=== PATIENT | female | born 1945 | race Caucasian/White ===

== ENCOUNTER 2017-07-22 14:56 | Observation (INO) | payer MEDICARE, BC ==
[2017-07-22] MEDS ORDERED: Ondansetron 4 MG/2 ML SDV IVPUSH ONE (15:13)
[2017-07-22] MEDS ORDERED: Sodium Chloride 0.9% 1,000 ML IV SCH (15:15)
[2017-07-22] MEDS ORDERED: Pantoprazole 40 MG Vial IVPUSH ONE (15:44)
--- NOTE | 2017-07-22 15:45 | EDM.PDOC ---
ED HPI GENERAL MEDICAL PROBLEM - General Chief Complaint: Gastrointestinal Problem Stated Complaint: MEDICAL/DR. HALL CALLED Time Seen by Provider: 07/22/17 15:45 Source of Information: Reports: Patient History Limitations: Reports: No Limitations - History of Present Illness INITIAL COMMENTS - FREE TEXT/NARRATIVE: pt started with intractable vomiting. She did not have pain in the abdoman. She was vomiting coffee ground material. She has been on omeprazole 20mg 1 tab daily. Onset: Today, Sudden Duration: Hour(s): Location: Reports: Abdomen Associated Symptoms: Reports: Nausea/Vomiting, Other ( sudden onset. 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: Hematologic History: Reports: Blood Transfusion(s) - Past Surgical History GI Surgical History: Reports: Appendectomy Female Surgical History: Reports: Hysterectomy Social & Family History - Tobacco Use Smoking Status *Q: Never Smoker - Caffeine Use Caffeine Use: Reports: Coffee - Alcohol Use Days Per Week of Alcohol Use: 7 Number of Drinks Per Day: 2 Total Drinks Per Week: 14 - Recreational Drug Use Recreational Drug Use: No ED ROS GENERAL - Review of Systems Review Of Systems: See Below Constitutional: Reports: No Symptoms HEENT: Reports: No Symptoms Respiratory: Reports: No Symptoms Cardiovascular: Reports: No Symptoms Endocrine: Reports: No Symptoms GI/Abdominal: Reports: Hematemesis, Nausea, Vomiting, Other ( Pt is feeling very shakey. ) : Reports: No Symptoms Musculoskeletal: Reports: No Symptoms Skin: Reports: No Symptoms ED EXAM, GI/ABD - Physical Exam Exam: See Below Text/Narrative:: Pt arrived with nausea and vomiting. She is vomiting coffee ground material. She does not have abdomanal pain. Exam Limited By: No Limitations General Appearance: Alert, Anxious, Moderate Distress Eyes: Bilateral: Normal Appearance, EOMI Ears: Normal TMs Nose: Normal Inspection Throat/Mouth: Normal Inspection Head: Atraumatic Neck: Normal Inspection Respiratory/Chest: No Respiratory Distress Cardiovascular: Regular Rate, Rhythm GI/Abdominal Exam: Soft, Non-Tender (Female) Exam: Deferred Rectal (Female) Exam: Deferred Back Exam: Normal Inspection Extremities: Normal Inspection Neurological: Alert, Oriented, Normal Cognition, Other (pt appears very anxious and she is having very restless legs. ) Course - Vital Signs Last Recorded V/S: Last Vital Signs Temp 35.4 C 07/22/17 16:02 Pulse 74 07/22/17 16:02 Resp 22 H 07/22/17 16:02 BP 147/77 H 07/22/17 16:02 Pulse Ox 100 07/22/17 16:02 - Orders/Labs/Meds Orders: Active Orders 24 hr Category Date Time Status OCCULT BLOOD, GASTRIC [OP] Stat Lab 07/22/17 15:43 Uncollected UA W/MICROSCOPIC [URIN] Urgent Lab 07/22/17 15:16 Uncollected Sodium Chloride 0.9% [Normal Saline] 1,000 ml Med 07/22/17 15:15 Active IV ASDIRECTED Medication Orders Sodium Chloride (Normal Saline) 1,000 mls @ 250 mls/hr IV ASDIRECTED NEERAJ Last Admin: 07/22/17 15:22 Dose: 250 mls/hr Labs: Laboratory Tests 07/22/17 07/22/17 Range/Units 15:25 15:25 WBC 10.6 (4.5-11.0) K/uL RBC 4.67 (3.30-5.50) M/uL Hgb 14.6 (12.0-15.0) g/dL Hct 41.3 (36.0-48.0) % MCV 88 (80-98) fL MCH 31 (27-31) pg MCHC 35 (32-36) % Plt Count 197 (150-400) K/uL Neut % (Auto) 78 H (36-66) % Lymph % (Auto) 15 L (24-44) % [place] % (Auto) 7 H (2-6) % Eos % (Auto) 1 L (2-4) % Baso % (Auto) 0 (0-1) % Sodium 139 L (140-148) mmol/L Potassium 3.3 L (3.6-5.2) mmol/L Chloride 101 (100-108) mmol/L Carbon Dioxide 23 (21-32) mmol/L Anion Gap 18.3 H (5.0-14.0) mmol/L BUN 18 (7-18) mg/dL Creatinine 0.8 (0.6-1.0) mg/dL Est Cr Clr Drug Dosing 50.27 mL/min Estimated GFR (MDRD) > 60 (>60) Glucose 194 H (74-106) mg/dL Calcium 9.2 (8.5-10.1) mg/dL Total Bilirubin 0.5 (0.2-1.0) mg/dL AST 26 (15-37) U/L ALT 34 (12-78) U/L Alkaline Phosphatase 79 (46-116) U/L Total Protein 8.6 H (6.4-8.2) g/dL Albumin 4.3 (3.4-5.0) g/dL Globulin 4.3 H (2.3-3.5) g/dL Albumin/Globulin Ratio 1.0 L (1.2-2.2) Meds: Medications Generic Name Dose Route Start Last Admin Trade Name Freq PRN Reason Stop Dose Admin Sodium Chloride 1,000 mls @ 250 mls/hr 07/22/17 15:15 07/22/17 15:22 Normal Saline IV 250 mls/hr ASDIRECTED NEERAJ Administration Discontinued Medications Generic Name Dose Route Start Last Admin Trade Name Freq PRN Reason Stop Dose Admin Lorazepam 0.5 mg 07/22/17 16:01 07/22/17 16:11 Ativan IVPUSH 07/22/17 16:02 0.5 mg ONETIME ONE Administration Ondansetron HCl 4 mg 07/22/17 15:13 07/22/17 15:23 Zofran IVPUSH 07/22/17 15:14 4 mg ONETIME ONE Administration Pantoprazole Sodium 40 mg 07/22/17 15:44 07/22/17 15:52 Protonix Iv IVPUSH 07/22/17 15:45 40 mg ONETIME ONE Administration - Re-Assessments/Exams Free Text/Narrative Re-Assessment/Exam: 07/22/17 16:21 hg is stable and vital signs are normal. . She has coffee ground material. Departure - Departure Time of Disposition: 16:23 Disposition: Admitted As Inpatient 66 Condition: Fair Clinical Impression: Dehydration, Coffee ground vomiting, Gastric reflux - Discharge Information Referrals: Last Cuellar MD [Primary Care Provider] - Forms: ED Department Discharge Care Plan Goals: admit to Dr sebastian. - My Orders Last 24 Hours: My Active Orders 07/22/17 15:15 Sodium Chloride 0.9% [Normal Saline] 1,000 ml IV ASDIRECTED 07/22/17 15:16 UA W/MICROSCOPIC [URIN] Urgent 07/22/17 15:43 OCCULT BLOOD, GASTRIC [OP] Stat - Assessment/Plan Last 24 Hours: My Active Orders 07/22/17 15:15 Sodium Chloride 0.9% [Normal Saline] 1,000 ml IV ASDIRECTED 07/22/17 15:16 UA W/MICROSCOPIC [URIN] Urgent 07/22/17 15:43 OCCULT BLOOD, GASTRIC [OP] Stat
[2017-07-22] MEDS ORDERED: LORazepam 2 MG/ML MDV IVPUSH ONE (16:01)
--- NOTE | 2017-07-22 17:09 | PCM.HP ---
H&P History of Present Illness - General Date of Service: 07/22/17 Admit Problem/Dx: Admission Diagnosis/Problem Admission Diagnosis/Problem Vertigo Source of Information: Patient, Family, Provider, RN Notes Reviewed History Limitations: Reports: No Limitations - History of Present Illness Initial Comments - Free Text/Narative: Ms. Núñez is a 72-year-old woman who is admitted to observation status through the emergency department with positional vertigo, resulting in intractable nausea vomiting and dehydration. She felt well until about noon today when she noted sudden onset of a dizzy spinning sensation. She recognized this as vertigo as she has experienced it in the past. Shortly after onset of the vertigo developed intractable nausea and vomiting which persisted over the next few hours until she presented to the emergency department. While in the emergency department she has received antiemetic therapy including Zofran and lorazepam. With these interventions the nausea and vomiting has improved. Vertiginous symptoms have improved but recur abruptly with any change in head position. She denies any other neurologic symptoms and is otherwise hemodynamically stable. 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 Denies: Ear Pain, Eye Pain, Headaches Pulmonary: Reports: No Symptoms Cardiovascular: Reports: No Symptoms Gastrointestinal: Reports: Nausea, Vomiting. Denies: Abdominal Pain, Diarrhea Genitourinary: Reports: No Symptoms Musculoskeletal: Reports: No Symptoms Skin: Reports: No Symptoms Psychiatric: Reports: No Symptoms Neurological: Reports: No Symptoms Hematologic/Lymphatic: Reports: No Symptoms Immunologic: Reports: No Symptoms Exam - Exam Exam: See Below - Vital Signs Vital Signs: Last Vital Signs Temp 95.8 F 07/22/17 16:02 Pulse 74 07/22/17 16:02 Resp 22 H 07/22/17 16:02 BP 147/77 H 07/22/17 16:02 Pulse Ox 100 07/22/17 16:02 Weight: 177 lb - Exam Quality Assessment: DVT Prophylaxis General: Cooperative, Moderate Distress, Sedated HEENT: Conjunctiva Clear, Mucosa Moist & Boring, Normal Nasal Septum, Posterior Pharynx Clear, Pupils Equal Neck: Supple, Trachea Midline, +2 Carotid Pulse wo Bruit Lungs: Clear to Auscultation, Normal Respiratory Effort Cardiovascular: Regular Rate, Regular Rhythm, Normal S1, Normal S2 GI/Abdominal Exam: Normal Bowel Sounds, Soft, Non-Tender, No Distention Back Exam: Normal Inspection, Full Range of Motion Extremities: Normal Inspection, Non-Tender, No Pedal Edema Skin: Warm, Dry, Intact Neurological: Cranial Nerves Intact, Strength Equal Bilateral, Normal Speech, Normal Tone, Sensation Intact. No: Focal Deficit Neuro Extensive - Mental Status: Alert, Oriented x3, Normal Mood/Affect, Normal Cognition, Memory Intact - Patient Data Lab Results Last 24 hrs: Laboratory Results - last 24 hr 07/22/17 07/22/17 Range/Units 15:25 15:25 WBC 10.6 (4.5-11.0) K/uL RBC 4.67 (3.30-5.50) M/uL Hgb 14.6 (12.0-15.0) g/dL Hct 41.3 (36.0-48.0) % MCV 88 (80-98) fL MCH 31 (27-31) pg MCHC 35 (32-36) % Plt Count 197 (150-400) K/uL Neut % (Auto) 78 H (36-66) % Lymph % (Auto) 15 L (24-44) % [place] % (Auto) 7 H (2-6) % Eos % (Auto) 1 L (2-4) % Baso % (Auto) 0 (0-1) % Sodium 139 L (140-148) mmol/L Potassium 3.3 L (3.6-5.2) mmol/L Chloride 101 (100-108) mmol/L Carbon Dioxide 23 (21-32) mmol/L Anion Gap 18.3 H (5.0-14.0) mmol/L BUN 18 (7-18) mg/dL Creatinine 0.8 (0.6-1.0) mg/dL Est Cr Clr Drug Dosing 50.27 mL/min Estimated GFR (MDRD) > 60 (>60) Glucose 194 H (74-106) mg/dL Calcium 9.2 (8.5-10.1) mg/dL Total Bilirubin 0.5 (0.2-1.0) mg/dL AST 26 (15-37) U/L ALT 34 (12-78) U/L Alkaline Phosphatase 79 (46-116) U/L Total Protein 8.6 H (6.4-8.2) g/dL Albumin 4.3 (3.4-5.0) g/dL Globulin 4.3 H (2.3-3.5) g/dL Albumin/Globulin Ratio 1.0 L (1.2-2.2) Result Diagrams: 07/22/17 15:25 07/22/17 15:25 *Q Meaningful Use (ADM) - VTE *Q VTE Criteria *Q: - VTE Risk Assess *Q Each Risk Factor Represents 1 Point: None Total Score 1 Point Risk Factors: 0 Each Risk Factor Represents 2 Points: Age 60 - 74 Years Total Score 2 Point Risk Factors: 2 Each Risk Factor Represents 3 Points: None Total Score 3 Point Risk Factors: 0 Each Risk Factor Represents 5 Points: None Total Score 5 Point Risk Factors: 0 Venous Thromboembolism Risk Factor Score *Q: 2 - Stroke *Q Stroke Criteria *Q: - AMI *Q AMI Criteria *Q: Problem List Initiated/Reviewed/Updated: Yes Orders Last 24hrs: Active Orders 24 hr Category Date Time Status Patient Status Manage Transfer [TRANSFER] Routine ADT 07/22/17 16:54 Ordered OCCULT BLOOD, GASTRIC [OP] Stat Lab 07/22/17 15:43 Uncollected UA W/MICROSCOPIC [URIN] Urgent Lab 07/22/17 15:16 Uncollected Sodium Chloride 0.9% [Normal Saline] 1,000 ml Med 07/22/17 15:15 Active IV ASDIRECTED Resuscitation Status Routine Resus Stat 07/22/17 16:56 Ordered Medication Orders Sodium Chloride (Normal Saline) 1,000 mls @ 250 mls/hr IV ASDIRECTED [facility] Last Admin: 07/22/17 15:22 Dose: 250 mls/hr Assessment/Plan Comment:: ASSESSMENT AND PLAN POSITIONAL VERTIGO-associated with intractable nausea vomiting and resulting dehydration. Abrupt onset of symptoms today, nausea and vomiting did not start until after she developed the vertigo. There was some question of possible blood in the emesis, patient reports that she had prune jam with her toast. -Clear liquid diet -IV lorazepam as needed for nausea -When necessary meclizine -Physical therapy consult in a.m. -Protonix 40 mg IV twice daily MAINTENANCE ISSUES -DVT prophylaxis; Lovenox 40 mg subcutaneous daily -GI prophylaxis; Protonix as above -Hurt catheter; not indicated -Nutrition; clear liquid diet -Nicotinic dependence; not required CODE STATUS-full code ADMISSION STATUS-this patient will be admitted to observation status, expect no more than a one night hospital stay for evaluation and management of problems as outlined above. DISPOSITION-anticipate discharge to home after the hospital stay. PRIMARY CARE PROVIDER-Erin Hinojosa
[2017-07-22] MEDS ORDERED: LORazepam 2 MG/ML MDV IV PRN (17:38)
[2017-07-22] MEDS ORDERED: Magnesium Hydroxide 400 MG/5 ML Susp 30 ML Cup PO PRN (17:38)
[2017-07-22] MEDS ORDERED: Acetaminophen 325 MG Tab PO PRN (17:38)
[2017-07-22] MEDS ORDERED: Meclizine 25 MG Tab PO PRN (17:38)
[2017-07-22] MEDS ORDERED: Docusate Sodium 100 MG Cap PO PRN (17:38)
[2017-07-22] MEDS ORDERED: Sodium Chloride 0.9% 10 ML Syringe FLUSH PRN (17:38)
[2017-07-22] MEDS ORDERED: Polyethylene Glycol 3350 Powder 17 GM Packet PO PRN (17:38)
[2017-07-22] MEDS: Sodium Chloride 0.9% 1,000 ML IV SCH (18:29)
[2017-07-22] MEDS: Pantoprazole 40 MG Vial IV SCH (18:32)
[2017-07-22] MEDS: Enoxaparin 40 MG/0.4 ML Syringe SUBCUT SCH (18:32)
[2017-07-22] MEDS ORDERED: atorvaSTATin 20 MG Tab PO SCH (21:00)
[2017-07-23] MEDS: Sodium Chloride 0.9% 1,000 ML IV SCH ×2 (02:36→10:41)
[2017-07-23] MEDS: Pantoprazole 40 MG Vial IV SCH (06:39)
[2017-07-23] MEDS: Enoxaparin 40 MG/0.4 ML Syringe SUBCUT SCH (08:37)
[2017-07-23] MEDS ORDERED: Potassium Chloride 20 MEQ Tab.ER PO ONE (09:00)
[2017-07-23 11:56] VITALS: BP 117/72
--- NOTE | 2017-07-23 12:25 | PCM.DCSUM1 ---
Discharge Summary - Hospital Course Brief History: Ms. Núñez is a 72-year-old woman who was admitted through the emergency department observation status with intractable nausea vomiting secondary to positional vertigo. - Discharge Data Discharge Date: 07/23/17 Discharge Disposition: Home, Self-Care 01 Condition: Good - Discharge Diagnosis/Problem(s) (1) Nausea and vomiting SNOMED Code(s): 22874505 ICD Code: R11.2 - NAUSEA WITH VOMITING, UNSPECIFIED Status: Acute Current Visit: Yes (2) Positional vertigo SNOMED Code(s): 424797057 ICD Code: H81.10 - BENIGN PAROXYSMAL VERTIGO, UNSPECIFIED EAR Status: Acute Current Visit: Yes (3) Dehydration SNOMED Code(s): 36959531 ICD Code: E86.0 - DEHYDRATION Status: Acute Current Visit: Yes - Patient Summary/Data Consults: Consultations 07/22/17 17:38 PT Evaluation and Treatment [CONS] Routine Please Evaluate and Treat. PT Reason for Consult: Vestibular This query below is only for informational purposes and is not editable. Hospital Course: This patient is a 72-year-old woman who developed abrupt onset of vertigo followed shortly thereafter by intractable nausea and vomiting. She initially went into the clinic and then was referred to the emergency department for further evaluation and management. She was felt to be dehydrated and despite interventions the emergency department had ongoing symptoms of vertigo associated with nausea and vomiting. She was admitted to the hospital for management of her intractable symptoms on observation status. She received IV fluids for hydration as well as antiemetic therapy with IV lorazepam and meclizine as needed for the vertigo. By the following morning her symptoms had entirely resolved and she tolerated a regular diet prior to discharge. She denied any epigastric abdominal pain and has had no further nausea or vomiting. Potassium was low and was replaced intravenously as well as orally. She will be discharged home on a regular diet and is instructed to avoid driving for the next week and to make changes in position slowly.Prior to discharge she was seen by physical therapy for vestibular evaluation and was given written information concerning management of positional vertigo. Follow-up appointment will be scheduled with her primary care provider within one week. - Patient Instructions Diet: Usual Diet as Tolerated Activity: As Tolerated Other/Special Instructions: Please schedule follow-up appointment with primary care provider within one week. - Discharge Plan Home Medications: Home Meds Omeprazole 20 mg PO DAILY 01/26/16 [History] Ibuprofen 400 mg PO TID 07/22/17 [History] atorvaSTATin [Lipitor] 20 mg PO BEDTIME 07/22/17 [History] Referrals: Last Cuellar MD [Primary Care Provider] - - Patient Data Vitals - Most Recent: Last Vital Signs Temp 97.8 F 07/23/17 11:54 Pulse 77 07/23/17 11:54 Resp 16 07/23/17 11:54 BP 117/72 07/23/17 11:54 Pulse Ox 94 L 07/23/17 11:54 Weight - Most Recent: 174 lb 4.8 oz I&O - Last 24 hours: Intake & Output 07/22/17 07/23/17 07/23/17 22:59 06:59 14:59 Intake Total 200 1460 840 Output Total 1400 1050 Balance -1200 410 840 Lab Results - Last 24 hrs: Laboratory Results - last 24 hr 07/23/17 07/23/17 Range/Units 05:30 05:30 WBC 7.2 (4.5-11.0) K/uL RBC 4.16 (3.30-5.50) M/uL Hgb 13.0 (12.0-15.0) g/dL Hct 37.0 (36.0-48.0) % MCV 89 (80-98) fL MCH 31 (27-31) pg MCHC 35 (32-36) % Plt Count 191 (150-400) K/uL Neut % (Auto) 60 (36-66) % Lymph % (Auto) 29 (24-44) % [place] % (Auto) 9 H (2-6) % Eos % (Auto) 2 (2-4) % Baso % (Auto) 0 (0-1) % Sodium 142 (140-148) mmol/L Potassium 3.3 L (3.6-5.2) mmol/L Chloride 108 (100-108) mmol/L Carbon Dioxide 27 (21-32) mmol/L Anion Gap 10.3 (5.0-14.0) mmol/L BUN 9 (7-18) mg/dL Creatinine 0.7 (0.6-1.0) mg/dL Est Cr Clr Drug Dosing 58.77 mL/min Estimated GFR (MDRD) > 60 (>60) Glucose 95 (74-106) mg/dL Calcium 8.3 L (8.5-10.1) mg/dL GABRIEL Results - Last 24 hrs: Microbiology 07/22/17 17:11 Gastric Occult Blood - Final Gastric Fluid Med Orders - Current: Current Medications Acetaminophen (Tylenol) 650 mg PO Q4H PRN PRN Reason: Pain (Mild 1-3)/fever Atorvastatin Calcium (Lipitor) 20 mg PO BEDTIME [facility] Last Admin: 07/22/17 21:22 Dose: Not Given Docusate Sodium (Colace) 100 mg PO BID PRN PRN Reason: Constipation Enoxaparin Sodium (Lovenox) 40 mg SUBCUT DAILY [facility] Last Admin: 07/23/17 08:37 Dose: 40 mg Sodium Chloride (Normal Saline) 1,000 mls @ 125 mls/hr IV ASDIRECTED [facility] Last Admin: 07/23/17 10:41 Dose: 125 mls/hr Lorazepam (Ativan) 0.5 mg IV Q2H PRN PRN Reason: Nausea/Vomiting Magnesium Hydroxide (Milk Of Magnesia) 30 ml PO Q12H PRN PRN Reason: Constipation Meclizine HCl (Antivert) 25 mg PO Q6H PRN PRN Reason: Dizziness Pantoprazole Sodium (Protonix Iv) 40 mg IV Q12H [facility] Last Admin: 07/23/17 06:39 Dose: 40 mg Polyethylene Glycol (Miralax) 17 gm PO DAILY PRN PRN Reason: Constipation Sodium Chloride (Saline Flush) 10 ml FLUSH ASDIRECTED PRN PRN Reason: Keep Vein Open Discontinued Medications Sodium Chloride (Normal Saline) 1,000 mls @ 250 mls/hr IV ASDIRECTED [facility] Last Admin: 07/22/17 15:22 Dose: 250 mls/hr Lorazepam (Ativan) 0.5 mg IVPUSH ONETIME ONE Stop: 07/22/17 16:02 Last Admin: 07/22/17 16:11 Dose: 0.5 mg Ondansetron HCl (Zofran) 4 mg IVPUSH ONETIME ONE Stop: 07/22/17 15:14 Last Admin: 07/22/17 15:23 Dose: 4 mg Pantoprazole Sodium (Protonix Iv) 40 mg IVPUSH ONETIME ONE Stop: 07/22/17 15:45 Last Admin: 07/22/17 15:52 Dose: 40 mg Potassium Chloride (Klor-Con M20) 40 meq PO ONETIME ONE Stop: 07/23/17 09:01 Last Admin: 07/23/17 09:03 Dose: 40 meq *Q Meaningful Use (DIS) - VTE *Q VTE Criteria *Q: - Stroke *Q Stroke Criteria *Q: - AMI *Q AMI Criteria *Q:
== END 2017-07-23 13:30 | disposition home or self-care (01) ==
LOC: JP.ED 14:56 → JP.MS 16:54
PROVIDERS: ADMIT Hospitalist; ATTEND Hospitalist
DX: R11.2 Nausea with vomiting, unspecified (principal); H81.10 Benign paroxysmal vertigo, unspecified ear; E86.0 Dehydration; E78.00 Pure hypercholesterolemia, unspecified; Z79.899 Other long term (current) drug therapy; Z91.09 Other allergy status, other than to drugs and biological substances; Z90.49 Acquired absence of other specified parts of digestive tract; Z90.710 Acquired absence of both cervix and uterus
CPT/HCPCS: 36415; 80048; 80053; 81001; 82271; 85025; 96361; 96372; 96374; 96375; 96376; 97165; 99284; 99285; A9270; C9113; G0378; J1650; J2060; J2405; J7040

== ENCOUNTER 2021-10-14 11:06 | Emergency (ER) | payer MEDICARE ==
[2021-10-14 11:33] VITALS: BP 147/78; PULSE 71
--- NOTE | 2021-10-14 11:49 | EDM.PDOC ---
ED HPI GENERAL MEDICAL PROBLEM - General Chief Complaint: Skin Complaint Stated Complaint: SHINGLES ON BACK Time Seen by Provider: 10/14/21 11:40 Source of Information: Reports: Patient History Limitations: Reports: No Limitations - History of Present Illness INITIAL COMMENTS - FREE TEXT/NARRATIVE: 76-year-old female with an irritated mildly painful area on her left flank that has been present for the past 2 days. She is also had some mild neck discomfort and soreness radiating into the shoulder and some generalized malaise. No specific fevers or chills, no nausea or vomiting. She took a look at her back in the mirror and thinks she may have shingles. She has not had this in the past but she has been under a lot of stress over the past several weeks. Duration: Day(s): (2 or 3 days) Location: Reports: Other (Left posterior chest and back) Quality: Reports: Ache, Burning Worsens with: Reports: Other (Worsens with touching the area or movement) Associated Symptoms: Reports: Other (See HPI) - Related Data Allergies Allergy/AdvReac Type Severity Reaction Status Date / Time tree nut Allergy Nausea and Verified 07/22/17 18:06 Vomiting Home Meds: Home Meds Omeprazole 20 mg PO DAILY 01/26/16 [History] Ibuprofen 400 mg PO TID 07/22/17 [History] atorvaSTATin [Lipitor] 20 mg PO BEDTIME 07/22/17 [History] Acetaminophen [Tylenol Extra Strength] 500 mg PO Q4H PRN 10/14/21 [History] Famciclovir [Famvir] 500 mg PO TID 5 Days #15 tablet 10/14/21 [Rx] Past Medical History - Past Health History Medical/Surgical History: Denies Medical/Surgical History Cardiovascular History: Reports: High Cholesterol Respiratory History: Reports: 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 Denies: Fever, Chills HEENT: Denies: Sinus Problem, Throat Pain Respiratory: Denies: Shortness of Breath, Cough Cardiovascular: Denies: Chest Pain GI/Abdominal: Reports: No Symptoms Musculoskeletal: Reports: Neck Pain (Some mild neck soreness some left shoulder soreness) Skin: Reports: Rash (See HPI) Neurological: Denies: Headache ED EXAM, SKIN/RASH Exam: See Below Exam Limited By: No Limitations General Appearance: Alert, No Apparent Distress Eye Exam: Bilateral Eye: Normal Inspection Head: Atraumatic Neck: Supple, Non-Tender. No: Lymphadenopathy (R), Lymphadenopathy (L) Respiratory/Chest: Lungs Clear Cardiovascular: Regular Rate, Rhythm Back Exam: Other (Patient has a group of blistering lesions, on an erythematous base just lateral to the thoracic spine at about the T8 level. It is tender to palpation in the area) Neurological: Alert, Oriented, No Motor/Sensory Deficits Psychiatric: Normal Affect, Normal Mood Course - Vital Signs Last Recorded V/S: Last Vital Signs Temp 97.7 F 10/14/21 11:32 Pulse 71 10/14/21 11:32 Resp 16 10/14/21 11:32 BP 147/78 H 10/14/21 11:32 Pulse Ox 96 10/14/21 11:32 - Re-Assessments/Exams Free Text/Narrative Re-Assessment/Exam: 10/14/21 12:09 This appears to be an isolated area of simplex outbreak, it may be early simplex zoster. She was placed on Famvir 500 mg 3 times a day for the next 5 days, and can return if worsening. Departure - Departure Time of Disposition: 11:56 Disposition: Home, Self-Care 01 Clinical Impression: Shingles outbreak Qualifiers: Herpes zoster complications: without complications Qualified Code(s): B02.9 - Zoster without complications - Discharge Information Prescriptions: Famciclovir [Famvir] 500 mg PO TID 5 Days #15 tablet Instructions: Shingles, [id number] Referrals: PCP,None [Primary Care Provider] - Forms: ED Department Discharge Care Plan Goals: Take antiviral medication 3 times a day for 5 days, and ibuprofen or naproxen will be helpful as well. Return if worsening or concerns. Sepsis Event Note (ED) - Evaluation Sepsis Screening Result: No Definite Risk - Focused Exam Vital Signs: Vital Signs Temp Pulse Resp BP Pulse Ox 10/14/21 11:32 97.7 F 71 16 147/78 H 96
== END 2021-10-14 11:57 | disposition home or self-care (01) ==
LOC: JP.ED 11:06
DX: B02.9 Zoster without complications (principal); E78.00 Pure hypercholesterolemia, unspecified; Z91.018 Allergy to other foods; Z79.899 Other long term (current) drug therapy
CPT/HCPCS: 99282

== ENCOUNTER 2024-11-01 15:46 | Emergency (ER) | payer MEDICARE ==
[2024-11-01 16:01] VITALS: BP 152/78; PULSE 92
[2024-11-01] MEDS: Ondansetron 4 MG Tab.DIS PO ONE (16:49)
[2024-11-01] MEDS: Oseltamivir 75 MG Cap PO ONE (16:49)
== END 2024-11-01 16:52 | disposition home or self-care (01) ==
LOC: JP.ED 15:46
DX: J10.1 Influenza due to other identified influenza virus with other respiratory manifestations (principal); E78.00 Pure hypercholesterolemia, unspecified; E11.9 Type 2 diabetes mellitus without complications; E66.9 Obesity, unspecified; Z68.33 Body mass index [BMI] 33.0-33.9, adult; Z86.16 Personal history of COVID-19; Z90.49 Acquired absence of other specified parts of digestive tract; Z90.710 Acquired absence of both cervix and uterus; Z91.018 Allergy to other foods; Z91.048 Other nonmedicinal substance allergy status; Z79.84 Long term (current) use of oral hypoglycemic drugs; Z79.899 Other long term (current) drug therapy
CPT/HCPCS: 87428; 99284; A9270; Q0162